=== PATIENT | female | born 1980 | race Native Hawaiian/Other Pacific Islander ===

== ENCOUNTER 2017-03-12 08:35 | Inpatient (IN) | payer OTHER ==
[2017-03-12] MEDS ORDERED: ZOFRAN IV PRN (11:00)
[2017-03-12] MEDS ORDERED: PITOCin/NS 20 UNIT/1000ML DRIP 20 UNITS/1,000 ML BAG IV SCH (11:00)
[2017-03-12] MEDS ORDERED: BRETHINE IVP PRN (11:00)
[2017-03-12] MEDS ORDERED: PITOCin/NS 30 UNIT/500ML 30 UNITS/500 ML BAG IV SCH (11:00)
[2017-03-12] MEDS ORDERED: ePHEDrine SULFATE IV PRN (11:00)
[2017-03-12] MEDS ORDERED: MINERAL OIL PO PRN (11:00)
[2017-03-12] MEDS ORDERED: BRETHINE SUB-Q PRN (11:00)
--- NOTE | 2017-03-12 11:09 | History and Physical Report ---
History of Present Illness Date of examination: 03/12/17 Date of admission: 03/12/17 08:35 Chief complaint: Presents for scheduled induction of labor due to postdates and Anencephaly History of present illness: Early entry to care, co-managed with [facility] due to abnormal Quad screen (+ OSB) and Anencephaly. Abnormal 1hour GTT followed by a normal 3hour GTT. Past History Past Medical History: no pertinent history Past Surgical History: no surgical history Family/Genetic History: none Social history: no significant social history, single - Obstetrical History Expected Date of Delivery: 03/08/17 Actual Gestation: 40 Week(s) 4 Day(s) : 3 Para: 2 Number of Living Children: 2 #1 Gender: Female year: 2,[birth year] Birthweight: 3.374 kg Method of Delivery: Vaginal Gestational age at delivery: 41 Complications: none #2 Gender: Female year: 2,[birth year] Birthweight: 3.374 kg Method of Delivery: Vaginal Gestational age at delivery: 40 Complications: none Review of Systems All systems: negative - Vital Signs Vital signs: Vital Signs Pulse BP 82 120/72 03/12/17 09:35 03/12/17 09:35 Temp Pulse Resp BP Pulse Ox 82 120/72 03/12/17 09:35 03/12/17 09:35 - Physical Exam Breasts: Positive: normal Cardiovascular: Regular rate Lungs: Positive: Clear to auscultation, Normal air movement Abdomen: Positive: normal appearance, soft, normal bowel sounds Genitourinary (Female): Positive: normal external genitalia, normal perenium Vagina: Positive: normal moisture Uterus: Positive: enlarged - Obstetrical FHR: auscultation normal Uterine Contraction Monitor Mode: External Cervical Dilatation: 1 Cervical Effacement Percentage: 20 station: -3 Uterine Contraction Pattern: Absent Uterine Tone Measurement Phase: Resting Results All other labs normal. Assessment and Plan A: IUP @ 40 4/7 Weeks Anencephaly GBS Negative P: Admit to L&D per routine orders Cytotec Induction
[2017-03-12] MEDS ORDERED: CYTOTEC ONE ×3 (11:29→23:14)
[2017-03-12] MEDS: CYTOTEC VAGINAL SCH ×3 (11:30→19:20)
--- NOTE | 2017-03-12 11:37 | Event Note ---
Date: 03/12/17 S: Presents for induction of labor O: cx: 3 A: IUP @ 40 4/7 Weeks Anencephaly P: 100mcg of Cytotec placed vaginally Will not continuously monitor FHTs
[2017-03-12 11:39] LABS: Hematocrit 33.4 % (30.3-42.9); Hemoglobin 11.3 gm/dl (10.1-14.3); Mean Corpuscular HGB Conc 34 % (30-34); Mean Corpuscular Hemoglobin 28 pg (28-32); Mean Corpuscular Volume 83 fl (79-97); Platelet Count 176 K/mm3 (140-440); Red Blood Count 4.03 M/mm3 (3.65-5.03); White Blood Count 6.6 K/mm3 (4.5-11.0)
[2017-03-12] MEDS ORDERED: XYLOCAINE 2% INFILTRATI ONE (12:00)
[2017-03-12] MEDS: LACTATED RINGERS 1,000 ML IV SCH ×3 (12:02→23:16)
[2017-03-12] MEDS: STADOL IV PRN ×2 (16:22→19:29)
--- NOTE | 2017-03-12 19:22 | Progress Note ---
Assessment and Plan A: IUP @ 40 4/7 Weeks Anencephaly GBS Negative P: Continue Cytotec Induction Subjective - Subjective Date of service: 03/12/17 Interval history: Early entry to care, co-managed with [facility] due to abnormal Quad screen (+ OSB) and Anencephaly. Abnormal 1hour GTT followed by a normal 3hour GTT. Patient reports: contractions Objective - Vital Signs Vital Signs: Vital Signs - 12hr 03/12/17 03/12/17 03/12/17 09:35 11:48 11:53 Temperature 98.5 F Pulse Rate 82 82 Blood Pressure 120/72 111/67 03/12/17 03/12/17 03/12/17 12:53 13:53 14:53 Temperature Pulse Rate 75 89 82 Blood Pressure 107/61 112/64 95/52 03/12/17 03/12/17 03/12/17 15:54 16:54 17:53 Temperature Pulse Rate 86 75 80 Blood Pressure 128/66 108/63 115/75 03/12/17 18:54 Temperature Pulse Rate 77 Blood Pressure 110/64 - Exam Breasts: normal Cardiovascular: Regular rate Lungs: Clear to auscultation, Normal air movement Abdomen: Present: normal appearance, soft, normal bowel sounds Uterus: Present: normal, firm, fundal height above umbilicus Uterine Contraction Monitor Mode: External Cervical Dilatation: 3 Cervical Effacement Percentage: 70 station: -2 Uterine Contraction Pattern: Irregular Uterine Contraction Intensity: Mild Extremities: normal - Labs Labs: Abnormal Labs 03/12/17 09:51 RDW 16.0 H Laboratory Results - last 24 hr 03/12/17 03/12/17 09:51 09:51 WBC 6.6 RBC 4.03 Hgb 11.3 Hct 33.4 MCV 83 MCH 28 MCHC 34 RDW 16.0 H Plt Count 176 Blood Type O POSITIVE Antibody Screen Negative
[2017-03-13] MEDS: STADOL IV PRN ×4 (00:53→03:28)
[2017-03-13] MEDS ORDERED: CYTOTEC VG SCH (03:00)
[2017-03-13] MEDS ORDERED: DULCOLAX PR PRN (03:55)
[2017-03-13] MEDS ORDERED: TUCKS PAD TP PRN (03:55)
[2017-03-13] MEDS ORDERED: LANSINOH TP PRN (03:55)
[2017-03-13] MEDS ORDERED: BENADRYL PO PRN (03:55)
[2017-03-13] MEDS ORDERED: MILK OF MAGNESIA PO PRN (03:55)
[2017-03-13] MEDS ORDERED: NORCO 5/325 PO PRN (03:55)
[2017-03-13] MEDS ORDERED: SODIUM CHLORIDE FLUSH SYRINGE 10 ML IV PRN (04:00)
--- NOTE | 2017-03-13 04:03 | Procedure Note ---
OB Delivery Note - Delivery Date of Delivery: 03/13/17 (0334) Surgeon: TENNILLE RAI Estimated blood loss: other (150) - Vaginal Delivery presentation: face or brow Delivery induction: none Delivery monitor: external uterine Route of delivery: Delivery placenta: spontaneous Delivery cord: 3 umbilical vessels Episiotomy: none Delivery laceration: none Anesthesia: none Delivery comments: of a live 5'1 female infant over a intact perineum under IV pain control with Apgars of 1, 4, 5, and 5 @ 0334 on 03/13/2017. Cord clamped and cut by NAREN Rai, and infant placed on warmer per parent request. NICU team present at delivery due to Anencephaly. Spontaneous delivery of placenta complete and intact with [place] side presenting at 0340. Fundus is firm and midline located 4 below the U. Lochia is scant. Placenta to pathology. - A at 1 minute: 1 at 5 minutes: 4 Gender: Female (5'1)
[2017-03-13] MEDS: MOTRIN PO SCH ×2 (12:15→18:30)
--- NOTE | 2017-03-13 13:32 | Discharge Summary ---
Providers - Providers Date of Admission: 03/12/17 08:35 Date of discharge: 03/13/17 Attending physician: CESAR BENSON MD Primary care physician: CESAR BENSON MD Hospitalization Reason for admission: induction of labor Delivery: , other (Anacephalic) Laceration: vaginal side wall Other procedures: none complications: none Discharge diagnosis: IUP at term delivered [place] baby: female Condition at discharge: Good Disposition: DC-01 TO HOME OR SELFCARE Plan - Provider Discharge Summary Activity: routine, no sex for 6 weeks, no strenuous exercise Diet: routine Instructions: routine Additional instructions: [] Smoking cessation referral if applicable(refer to patient education folder for contact #) [] Refer to [employer] Booklet Call your doctor immediately for: * Fever > 100.5 * Heavy vaginal bleeding ( >1 pad per hour) * Severe persistent headache * Shortness of breath * Reddened, hot, painful area to leg or breast * Drainage or odor from incision. * Keep incision clean and dry at all times and follow doctor's instructions regarding bathing/showering - Follow up plan Follow up: CESAR BENSON MD [Primary Care Provider] - 7 Days [facility] [Provider Group] - 6 Weeks
[2017-03-13 15:58] LABS: Hematocrit 35.7 % (30.3-42.9); Hemoglobin 11.4 gm/dl (10.1-14.3)
[2017-03-13 17:39] VITALS: BP 108/70
== END 2017-03-13 19:00 | disposition home or self-care (01) | DRG 775 ==
LOC: LD 08:35 → OB 03-13 06:10
PROVIDERS: ADMIT Obstetrics & Gynecology; ATTEND Obstetrics & Gynecology
PROC: 10E0XZZ Delivery of Products of Conception, External Approach (ICD-10-PCS; principal; 2017-03-13)
DX: O48.0 Post-term pregnancy (principal); O32.8XX0 Maternal care for other malpresentation of fetus, not applicable or unspecified; Z3A.40 40 weeks gestation of pregnancy; Z37.0 Single live birth
CPT/HCPCS: 36415; 85014; 85018; 85027; 86592; 86850; 86900; 86901; 88307; J0595; J2590; J7120